=== PATIENT | male | born 1995 | race Two or more races ===

== ENCOUNTER 2019-01-23 10:30 | Emergency (ER) | payer BC ==
--- NOTE | 2019-01-23 10:33 | EDM.PDOC ---
ED HPI GENERAL MEDICAL PROBLEM - General Chief Complaint: Respiratory Problem Stated Complaint: COUGHING BLOOD Time Seen by Provider: 01/23/19 10:32 Source of Information: Reports: Patient History Limitations: Reports: No Limitations - History of Present Illness INITIAL COMMENTS - FREE TEXT/NARRATIVE: HISTORY AND PHYSICAL: History of present illness: Patient is a 23-year-old male who presents to the emergency room with complaints of a cough 1 week. He states the cough is dry and nonproductive but this morning he had noticed some blood tinged sputum which made him concerned. He does smoke occasionally. Has no previous respiratory illness or conditions.Patient denies any fever, chills, headache, change in vision, syncope or near syncope. Denies any chest pain, back pain, shortness of breath or cough. Denies any GI or symptoms. Patient has been eating and drinking appropriately. Review of systems: As per history of present illness and below otherwise all systems reviewed and negative. Past medical history: As per history of present illness and as reviewed below otherwise noncontributory. Surgical history: As per history of present illness and as reviewed below otherwise noncontributory. Social history: See social history for further information Family history: As per history of present illness and as reviewed below otherwise noncontributory. Physical exam: General: Well-developed well-nourished 23-year-old male. Alert and oriented. Nontoxic appearing and in no acute distress. HEENT: Atraumatic, normocephalic, pupils equal and reactive bilaterally, negative for conjunctival pallor or scleral icterus, mucous membranes moist, TMs normal bilaterally, throat clear, neck supple, nontender, trachea midline. No drooling or trismus noted. No meningeal signs. No hot potato voice noted. Lungs: Clear to auscultation, breath sounds equal bilaterally, chest nontender. Nonproductive cough noted Heart: S1S2, regular rate and rhythm without overt murmur Abdomen: Soft, nondistended, nontender. Negative for masses or hepatosplenomegaly. Negative for costovertebral tenderness. Pelvis: Stable nontender. Skin: Intact, warm, dry. No lesions or rashes noted. Extremities: Atraumatic, moves all extremities per self without difficulty or deficits, negative for cords or calf pain. Neurovascular unremarkable. Neuro: Awake, alert, oriented. Cranial nerves II through XII unremarkable. Cerebellum unremarkable. Motor and sensory unremarkable throughout. Exam nonfocal. Notes: Chest x-ray shows no acute findings. Medication and supportive care measures were reviewed and discussed. Voices understanding and is agreeable to plan of care. Denies any further questions or concerns at this time. Diagnostics: CXR Therapeutics: None Prescription: [place] Impression: Bronchitis Plan: 1. Take the medications as prescribed. 2. You may use [id number] lozenges for comfort. Tylenol and/or ibuprofen as needed for pain management. 3. Follow-up with your primary care provider as we discussed. Return to the ED as needed and as discussed. Definitive disposition and diagnosis as appropriate pending reevaluation and review of above. - Related Data Allergies Allergy/AdvReac Type Severity Reaction Status Date / Time No Known Allergies Allergy Verified 01/23/19 10:40 Home Meds: Home Meds Azithromycin [Zithromax] 1 dose PO DAILY 5 Days #6 tab 01/23/19 [Rx] ED ROS GENERAL - Review of Systems Review Of Systems: ROS reveals no pertinent complaints other than HPI. ED EXAM, GENERAL - Physical Exam Exam: See Below (See dictation) Course - Vital Signs Last Recorded V/S: Last Vital Signs Temp 97.4 F 01/23/19 10:41 Pulse 70 01/23/19 10:41 Resp 14 01/23/19 10:41 BP 120/62 01/23/19 10:41 Pulse Ox 96 01/23/19 10:41 - Orders/Labs/Meds Orders: Active Orders 24 hr Category Date Time Status Chest 2V [CR] Stat Exams 01/23/19 10:43 Taken Departure - Departure Time of Disposition: 11:13 Disposition: Home, Self-Care 01 Clinical Impression: Bronchitis - Discharge Information Prescriptions: Azithromycin [Zithromax] 1 dose PO DAILY 5 Days #6 tab Instructions: Acute Bronchitis, Adult, [id number] Referrals: PCP,None [Primary Care Provider] - Forms: ED Department Discharge Additional Instructions: The following information is given to patients seen in the emergency department who are being discharged to home. This information is to outline your options for follow-up care. We provide all patients seen in our emergency department with a follow-up referral. The need for follow-up, as well as the timing and circumstances, are variable depending upon the specifics of your emergency department visit. If you don't have a primary care physician on staff, we will provide you with a referral. We always advise you to contact your personal physician following an emergency department visit to inform them of the circumstance of the visit and for follow-up with them and/or the need for any referrals to a consulting specialist. The emergency department will also refer you to a specialist when appropriate. This referral assures that you have the opportunity for follow-up care with a specialist. All of these measure are taken in an effort to provide you with optimal care, which includes your follow-up. Under all circumstances we always encourage you to contact your private physician who remains a resource for coordinating your care. When calling for follow-up care, please make the office aware that this follow-up is from your recent emergency room visit. If for any reason you are refused follow-up, please contact the [facility] Emergency Department at and asked to speak to the emergency department charge nurse. [facility] [address] [place] [id number] [facility] [address] [place] [id number] 1. Take the medications as prescribed. 2. You may use [id number] lozenges for comfort. Tylenol and/or ibuprofen as needed for pain management. 3. Follow-up with your primary care provider as we discussed. Return to the ED as needed and as discussed. - My Orders Last 24 Hours: My Active Orders 01/23/19 10:43 Chest 2V [CR] Stat - Assessment/Plan Last 24 Hours: My Active Orders 01/23/19 10:43 Chest 2V [CR] Stat
--- NOTE | 2019-01-23 11:30 | CR ---
Chest: Two views of the chest were obtained. Comparison: No previous chest x-ray. Scoliosis is noted within the thoracic spine. Lungs are clear with no acute parenchymal change. Heart size and mediastinum are normal. Impression: Scoliosis. Nothing acute is seen on two-view chest x-ray. Diagnostic code #2 MTDD
== END 2019-01-23 11:21 | disposition home or self-care (01) ==
LOC: MW.ED 10:30
DX: J40 Bronchitis, not specified as acute or chronic (principal); F17.200 Nicotine dependence, unspecified, uncomplicated
CPT/HCPCS: 71046; 71046-26; 99282; 99283-25

== ENCOUNTER 2019-03-19 10:13 | Emergency (ER) | payer BC ==
--- NOTE | 2019-03-19 10:19 | EDM.PDOC ---
ED HPI GENERAL MEDICAL PROBLEM - General Stated Complaint: STOMACH PROBLEMS Time Seen by Provider: 03/19/19 10:16 Source of Information: Reports: Patient History Limitations: Reports: No Limitations - History of Present Illness INITIAL COMMENTS - FREE TEXT/NARRATIVE: HISTORY AND PHYSICAL: History of present illness: Patient is a 23-year-old male who presents to the emergency room with complaints of diarrhea 3 days. Last loose stool was yesterday. He states he has had 1 or 2 episodes over the past 3 days where he has felt nauseated but has had no vomiting. Currently not nauseated. Patient denies any fever, chills, headache, change in vision, syncope or near syncope. Denies any chest pain, back pain, shortness of breath or cough. Denies any nausea, vomiting, diarrhea, constipation or dysuria. Has not noted any blood in urine or stool. Patient has been eating and drinking appropriately. NO recent antibiotic use. Patient does have a significant other at the bedside who states she has felt well and has not had any GI or symptoms. Review of systems: As per history of present illness and below otherwise all systems reviewed and negative. Past medical history: As per history of present illness and as reviewed below otherwise noncontributory. Surgical history: As per history of present illness and as reviewed below otherwise noncontributory. Social history: See social history for further information Family history: As per history of present illness and as reviewed below otherwise noncontributory. Physical exam: General: Well-developed and well-nourished 23-year-old male. Alert and oriented. Nontoxic appearing and in no acute distress. HEENT: Atraumatic, normocephalic, pupils equal and reactive bilaterally, negative for conjunctival pallor or scleral icterus, mucous membranes moist, TMs normal bilaterally, throat clear, neck supple, nontender, trachea midline. No drooling or trismus noted. No meningeal signs. No hot potato voice noted. Lungs: Clear to auscultation, breath sounds equal bilaterally, chest nontender. Heart: S1S2, regular rate and rhythm without overt murmur Abdomen: Soft, nondistended, nontender. Negative for masses or hepatosplenomegaly. Negative for costovertebral tenderness. Pelvis: Stable nontender. Skin: Intact, warm, dry. No lesions or rashes noted. Extremities: Atraumatic, moves all extremities per self without difficulty or deficits, negative for cords or calf pain. Neurovascular unremarkable. Neuro: Awake, alert, oriented. Cranial nerves II through XII unremarkable. Cerebellum unremarkable. Motor and sensory unremarkable throughout. Exam nonfocal. Notes: Patient's physical examination is within normal limits. He does not appear dehydrated. I did offer to do basic labs along with stool studies. He declines. He states he will take home the supplies to do the outpatient stool studies and return them if he has another loose stool. I will give him one dose of Imodium while he's here as he has not taken anything [id number]. He would like a work excuse for today. We discussed signs and symptoms that would prompt him to return to the emergency room. Otherwise I encouraged him to follow up with primary care. Supportive care measures were reviewed and discussed. Voices understanding and is agreeable to plan of care. Denies any further questions or concerns at this time. Diagnostics: Declines Therapeutics: Imodium Prescription: Outpatient stool studies (R19.7) Impression: Diarrhea Plan: 1. Roane diet over the next 24-72 hours. Advance as able and tolerated. Encourage plenty of fluids to prevent dehydration. 2. Tylenol and/or ibuprofen as needed for pain management. You may use Imodium for symptomatic relief as directed. 3. Follow-up with your primary care provider as we discussed. Return to the ED as needed and as discussed. Definitive disposition and diagnosis as appropriate pending reevaluation and review of above. Duration: Day(s): - Related Data Allergies Allergy/AdvReac Type Severity Reaction Status Date / Time No Known Allergies Allergy Verified 01/23/19 10:40 Home Meds: Home Meds . [No Known Home Meds] 03/19/19 [History] Past Medical History - Past Health History Medical/Surgical History: Denies Medical/Surgical History HEENT History: Reports: None Cardiovascular History: Reports: None Respiratory History: Reports: None Gastrointestinal History: Reports: None Genitourinary History: Reports: None Musculoskeletal History: Reports: None Neurological History: Reports: None Psychiatric History: Reports: None Endocrine/Metabolic History: Reports: None Hematologic History: Reports: None Immunologic History: Reports: None Oncologic (Cancer) History: Reports: None Dermatologic History: Reports: None - Infectious Disease History Infectious Disease History: Reports: None - Past Surgical History Head Surgeries/Procedures: Reports: None Social & Family History - Family History Family Medical History: Noncontributory - Caffeine Use Caffeine Use: Reports: Coffee ED ROS GENERAL - Review of Systems Review Of Systems: Comprehensive ROS is negative, except as noted in HPI. ED EXAM, GI/ABD - Physical Exam Exam: See Below (See dictation) Course - Vital Signs Last Recorded V/S: Last Vital Signs Temp 98.5 F 03/19/19 10:35 Pulse 60 03/19/19 10:35 Resp 16 03/19/19 10:35 BP 119/69 03/19/19 10:35 Pulse Ox 98 03/19/19 10:35 - Orders/Labs/Meds Meds: Medications Discontinued Medications Generic Name Dose Route Start Last Admin Trade Name Freq PRN Reason Stop Dose Admin Loperamide HCl 2 mg 03/19/19 10:40 03/19/19 10:48 Imodium PO 03/19/19 10:41 2 mg NOW STA Administration Departure - Departure Time of Disposition: 10:47 Disposition: Home, Self-Care 01 Clinical Impression: Diarrhea Qualifiers: Diarrhea type: unspecified type Qualified Code(s): R19.7 - Diarrhea, unspecified - Discharge Information Instructions: Diarrhea, Adult, [id number] Referrals: PCP,None [Primary Care Provider] - Additional Instructions: The following information is given to patients seen in the emergency department who are being discharged to home. This information is to outline your options for follow-up care. We provide all patients seen in our emergency department with a follow-up referral. The need for follow-up, as well as the timing and circumstances, are variable depending upon the specifics of your emergency department visit. If you don't have a primary care physician on staff, we will provide you with a referral. We always advise you to contact your personal physician following an emergency department visit to inform them of the circumstance of the visit and for follow-up with them and/or the need for any referrals to a consulting specialist. The emergency department will also refer you to a specialist when appropriate. This referral assures that you have the opportunity for follow-up care with a specialist. All of these measure are taken in an effort to provide you with optimal care, which includes your follow-up. Under all circumstances we always encourage you to contact your private physician who remains a resource for coordinating your care. When calling for follow-up care, please make the office aware that this follow-up is from your recent emergency room visit. If for any reason you are refused follow-up, please contact the [facility] Emergency Department at and asked to speak to the emergency department charge nurse. [facility] [address] [place] [address] [facility] [address] [place] [id number] 1. Roane diet over the next 24-72 hours. Advance as able and tolerated. Encourage plenty of fluids to prevent dehydration. 2. Tylenol and/or ibuprofen as needed for pain management. You may use Imodium for symptomatic relief as directed. 3. Follow-up with your primary care provider as we discussed. Return to the ED as needed and as discussed.
[2019-03-19] MEDS ORDERED: Loperamide 2 MG Cap PO STA (10:40)
== END 2019-03-19 11:06 | disposition home or self-care (01) ==
LOC: MW.ED 10:13
DX: R19.7 Diarrhea, unspecified (principal)
CPT/HCPCS: 99283; A9270

== ENCOUNTER 2019-04-21 00:30 | Emergency (ER) | payer BC ==
--- NOTE | 2019-04-21 02:31 | EDM.PDOC ---
ED HPI GENERAL MEDICAL PROBLEM - General Chief Complaint: Fever Stated Complaint: FLU SYMPTOMS Time Seen by Provider: 04/21/19 01:07 Source of Information: Reports: Patient History Limitations: Reports: No Limitations - History of Present Illness Onset: Gradual Duration: Day(s):, Waxing/Waning Location: Reports: Head Quality: Reports: Ache, Burning Severity: Mild Improves with: Reports: None Worsens with: Reports: None Context: Reports: Sick Contact Associated Symptoms: Reports: Cough, Fever/Chills, Nausea/Vomiting Middle Back Pain Score (Numeric/FACES): 7 - Related Data Allergies Allergy/AdvReac Type Severity Reaction Status Date / Time No Known Allergies Allergy Verified 04/21/19 00:49 Home Meds: Home Meds . [No Known Home Meds] 03/19/19 [History] Past Medical History - Past Health History Medical/Surgical History: Denies Medical/Surgical History HEENT History: Reports: None Cardiovascular History: Reports: None Respiratory History: Reports: None Gastrointestinal History: Reports: None Genitourinary History: Reports: None Musculoskeletal History: Reports: None Neurological History: Reports: None Psychiatric History: Reports: None Endocrine/Metabolic History: Reports: None Hematologic History: Reports: None Immunologic History: Reports: None Oncologic (Cancer) History: Reports: None Dermatologic History: Reports: None - Infectious Disease History Infectious Disease History: Reports: None - Past Surgical History Head Surgeries/Procedures: Reports: None Social & Family History - Family History Family Medical History: Noncontributory - Tobacco Use Smoking Status *Q: Never Smoker Second Hand Smoke Exposure: No - Caffeine Use Caffeine Use: Reports: Soda - Recreational Drug Use Recreational Drug Use: Yes Drug Use in Last 12 Months: Yes Recreational Drug Type: Reports: Marijuana/Hashish Recreational Drug Use Frequency: Socially ED ROS ENT - Review of Systems Review Of Systems: See Below Constitutional: Reports: Fever, Chills, Malaise, Weakness HEENT: Reports: No Symptoms Respiratory: Reports: Cough Cardiovascular: Reports: No Symptoms Endocrine: Reports: No Symptoms GI/Abdominal: Reports: Nausea, Vomiting : Reports: No Symptoms Musculoskeletal: Reports: No Symptoms Skin: Reports: No Symptoms Neurological: Reports: No Symptoms Psychiatric: Reports: No Symptoms Hematologic/Lymphatic: Reports: No Symptoms Immunologic: Reports: No Symptoms ED EXAM, ENT - Physical Exam Exam: See Below Exam Limited By: No Limitations General Appearance: Alert, WD/WN, No Apparent Distress Eye Exam: Bilateral Eye: Normal Fundi, Normal Inspection Ears: Normal External Exam, Normal Canal, Hearing Grossly Normal, Normal TMs Nose: Normal Inspection, Normal Mucousa, No Blood Mouth/Throat: Normal Inspection, Normal Gums, Normal Lips, Normal Oropharynx, Normal Teeth Head: Atraumatic, Normocephalic Neck: Normal Inspection, Supple, Non-Tender, Full Range of Motion Respiratory/Chest: No Respiratory Distress, Lungs Clear, Normal Breath Sounds, No Accessory Muscle Use, Chest Non-Tender Cardiovascular: Normal Peripheral Pulses, Regular Rate, Rhythm, No Edema, No Gallop, No JVD, No Murmur (Male) Exam: Deferred Rectal (Males) Exam: Deferred Back: Normal Inspection Neurological: Alert, Oriented, CN II-XII Intact, Normal Cognition, Normal Gait Psychiatric: Normal Affect, Normal Mood Skin: Warm, Dry, Intact, Normal Color Course - Vital Signs Last Recorded V/S: Last Vital Signs Temp 97.3 F 04/21/19 00:46 Pulse 89 04/21/19 00:46 Resp 16 04/21/19 00:46 BP 112/63 04/21/19 00:46 Pulse Ox 89 L 04/21/19 00:46 - Orders/Labs/Meds Orders: Active Orders 24 hr Category Date Time Status INFLUENZA A+B AG SCREEN [RM] Stat Lab 04/21/19 00:45 Received Departure - Departure Time of Disposition: 02:32 Disposition: Home, Self-Care 01 Condition: Good Clinical Impression: Viral syndrome - Discharge Information *PRESCRIPTION DRUG MONITORING PROGRAM REVIEWED*: Not Applicable Instructions: Viral Illness, Adult, Viral Respiratory Infection, [id number] Referrals: PCP,None [Primary Care Provider] - Sepsis Event Note - Evaluation Sepsis Screening Result: No Definite Risk - Focused Exam Vital Signs: Vital Signs Temp Pulse Resp BP Pulse Ox 04/21/19 00:46 97.3 F 89 16 112/63 89 L Date Exam was Performed: 04/21/19 Time Exam was Performed: 01:14 - My Orders Last 24 Hours: My Active Orders 04/21/19 00:45 INFLUENZA A+B AG SCREEN [RM] Stat - Assessment/Plan Last 24 Hours: My Active Orders 04/21/19 00:45 INFLUENZA A+B AG SCREEN [RM] Stat
== END 2019-04-21 02:45 | disposition home or self-care (01) ==
LOC: MW.ED 00:30
DX: B34.9 Viral infection, unspecified (principal)
CPT/HCPCS: 87804; 99284

== ENCOUNTER 2020-09-16 09:08 | Emergency (ER) | payer BC, OTHER ==
--- NOTE | 2020-09-16 09:26 | EDM.PDOC ---
ED HPI GENERAL MEDICAL PROBLEM - General Chief Complaint: Upper Extremity Injury/Pain Stated Complaint: LFT SHOULDER DISLOCATED Time Seen by Provider: 09/16/20 09:12 - History of Present Illness INITIAL COMMENTS - FREE TEXT/NARRATIVE: History of present illness: [] The patient was lifting something heavy at work and felt a pop in his left shoulder. Now he has trouble with extension and abduction of the shoulder. It is painful when he does that. It is painful at rest but worse when he tries to use it. The patient has no prior injury to this shoulder. The patient has no neurologic deficit in the shoulder. There is no associated symptoms or radiated pain. The pain is moderately severe when he tries to use the shoulder. Review of systems: As per history of present illness and below otherwise all systems reviewed and negative. Past medical history: As per history of present illness and as reviewed below otherwise noncontributory. Surgical history: As per history of present illness and as reviewed below otherwise noncontributory. Social history: No reported history of drug or alcohol abuse. Family history: As per history of present illness and as reviewed below otherwise noncontributory. Physical exam: Constitutional - well developed, well-nourished and in no acute distress HEENT - normocephalic, no evidence of trauma - external nose and mouth normal - no mass in neck and no JVD - mucosae moist EYES - full EOM, PERRL, no icterus - no evidence of inflammation, injection, or drainage Respiratory - no respiratory distress, equal bilateral expansion Musculoskeletal no obvious deformity of the left shoulder. Pain with range of motion. Limited abduction and extension secondary to pain. No gross deformity of long bones or joints - no tenderness, swelling or edema Neurologic -median ulnar and radial sensory and motor function in the left upper extremity is intact. Alert and oriented times four - CN II-XII grossly intact - motor sensory and coordination symmetrically normal Psychiatric - appropriate mood and affect with normal thought content Hematologic - No petechiae or purpura - mucosa appropriate color and sclera not pale - normal nail bed color and refill Integument - no rash or evidence of trauma - normal turgor Diagnostics: [] Therapeutics: [] Impression: [] Plan: [] Definitive disposition and diagnosis as appropriate pending reevaluation and review of above. Left shoulder Pain Score (Numeric/FACES): 6 - Related Data Allergies Allergy/AdvReac Type Severity Reaction Status Date / Time No Known Allergies Allergy Verified 09/16/20 09:24 Home Meds: Home Meds . [No Known Home Meds] 09/16/20 [History] Past Medical History - Past Health History Medical/Surgical History: Denies Medical/Surgical History HEENT History: Reports: None Cardiovascular History: Reports: None Respiratory History: Reports: None Gastrointestinal History: Reports: None Genitourinary History: Reports: None Musculoskeletal History: Reports: None Neurological History: Reports: None Psychiatric History: Reports: None Endocrine/Metabolic History: Reports: None Hematologic History: Reports: None Immunologic History: Reports: None Oncologic (Cancer) History: Reports: None Dermatologic History: Reports: None - Infectious Disease History Infectious Disease History: Reports: None - Past Surgical History Head Surgeries/Procedures: Reports: None Social & Family History - Family History Family Medical History: No Pertinent Family History - Caffeine Use Caffeine Use: Reports: Soda Review of Systems - Review of Systems Review Of Systems: Comprehensive ROS is negative, except as noted in HPI. ED EXAM, GENERAL - Physical Exam Exam: See Below Free Text/Narrative:: My physical exam is in the HPI Course - Vital Signs Text/Narrative:: Patient was offered p.o. or intramuscular nonsteroidal anti-inflammatory medicine and he refused because he said he can tolerate the pain. 9:51 AM the patient continues to have limited range of motion left shoulder. X- ray is normal to my interpretation. Impression is rotator cuff tear. Plan immobilize 2 days and no use of the left shoulder to lift. Orthopedic follow-up to see if he needs an MRI and/or further care including possible surgery. Last Recorded V/S: Last Vital Signs Temp 36.4 C 09/16/20 09:25 Pulse 83 09/16/20 09:25 Resp 16 09/16/20 09:25 BP 129/80 09/16/20 09:25 Pulse Ox 98 09/16/20 09:25 - Orders/Labs/Meds Orders: Active Orders 24 hr Category Date Time Status Shoulder Comp Lt [CR] Stat Exams 09/16/20 09:23 Taken DME for Discharge [COMM] Stat Oth 09/16/20 09:50 Ordered Departure - Departure Time of Disposition: 10:10 Disposition: Home, Self-Care 01 Condition: Good Clinical Impression: Unspecified sprain of left shoulder joint, initial encounter - Discharge Information Instructions: Shoulder Pain, [id number] Referrals: PCP,Declined [Primary Care Provider] - Forms: ED Department Discharge Additional Instructions: OverClinically it appears she may have torn part of your rotator cuff. After 2 days of immobilization ice counter anti-inflammatory medications and orthopedist or provider at the orthopedic clinic should decide if he can be released to full duty or if you need an MRI and possible consideration of further care including surgery. [facility] [place] [facility] [address], [address] [place] [address] The following information is given to patients seen in the emergency department who are being discharged to home. This information is to outline your options for follow-up care. We provide all patients seen in our emergency department with a follow-up referral. The need for follow-up, as well as the timing and circumstances, are variable depending upon the specifics of your emergency department visit. If you don't have a primary care physician on staff, we will provide you with a referral. We always advise you to contact your personal physician following an emergency department visit to inform them of the circumstance of the visit and for follow-up with them and/or the need for any referrals to a consulting specialist. The emergency department will also refer you to a specialist when appropriate. This referral assures that you have the opportunity for follow-up care with a specialist. All of these measure are taken in an effort to provide you with optimal care, which includes your follow-up. Under all circumstances we always encourage you to contact your private physician who remains a resource for coordinating your care. When calling for follow-up care, please make the office aware that this follow-up is from your recent emergency room visit. If for any reason you are refused follow-up, please contact the [facility] Emergency Department at and asked to speak to the emergency department charge nurse. Sepsis Event Note (ED) - Focused Exam Vital Signs: Vital Signs Temp Pulse Resp BP Pulse Ox 09/16/20 09:25 36.4 C 83 16 129/80 98 - My Orders Last 24 Hours: My Active Orders 09/16/20 09:23 Shoulder Comp Lt [CR] Stat 09/16/20 09:50 DME for Discharge [COMM] Stat - Assessment/Plan Last 24 Hours: My Active Orders 09/16/20 09:23 Shoulder Comp Lt [CR] Stat 09/16/20 09:50 DME for Discharge [COMM] Stat
--- NOTE | 2020-09-16 10:30 | CR ---
Indication: Lifting injury with pop Comparison: None available. Technique: AP internal, external rotation, and scapular-Y views left shoulder were obtained Findings: There is no displaced fracture or dislocation. The joint spaces are grossly preserved. The soft tissues are unremarkable. Impression: No acute osseous abnormality. Recommend follow-up with MRI to assess for internal derangement if there is persistent pain and clinical symptoms. Dictated by Nico Keen MD @ 09/16/2020 10:29:[address] Nico Keen @ Sep 16 2020 10:29AM
== END 2020-09-16 10:22 | disposition home or self-care (01) ==
LOC: MW.ED 09:08
DX: S43.402A Unspecified sprain of left shoulder joint, initial encounter (principal); X50.1XXA Overexertion from prolonged static or awkward postures, initial encounter; Y99.0 Civilian activity done for income or pay
CPT/HCPCS: 73030-26-LT; 73030-LT; 99283; 99283-25

== ENCOUNTER 2020-10-07 07:48 | Emergency (ER) | payer SELFPAY ==
--- NOTE | 2020-10-07 07:51 | EDM.PDOC ---
ED HPI GENERAL MEDICAL PROBLEM - General Stated Complaint: BACK PAIN Time Seen by Provider: 10/07/20 09:30 Source of Information: Reports: Patient History Limitations: Reports: No Limitations - History of Present Illness INITIAL COMMENTS - FREE TEXT/NARRATIVE: 24-year-old male no past medical history presents for low back pain for the last couple of months worsening over the last couple of days. Patient also notes history of left rotator cuff injury. Patient denies falling or injuring his back. No history of heavy lifting that he can recall. He went to a chiropractor yesterday which helped for about an hour but then the pain recurred. He is never had advanced imaging of the back. Pain is an bilateral lower back, not midline. No muscle weakness, sensory changes, saddle anesthesia, urinary or bowel incontinence or retention. left back Pain Score (Numeric/FACES): 8 - Related Data Allergies Allergy/AdvReac Type Severity Reaction Status Date / Time No Known Allergies Allergy Verified 10/07/20 09:26 Home Meds: Home Meds Cyclobenzaprine [Flexeril] 10 mg PO TID PRN #20 tab 10/07/20 [Rx] Ibuprofen [Motrin] 600 mg PO Q6H PRN #20 tab 10/07/20 [Rx] Past Medical History - Past Health History Medical/Surgical History: Denies Medical/Surgical History HEENT History: Reports: None Cardiovascular History: Reports: None Respiratory History: Reports: None Gastrointestinal History: Reports: None Genitourinary History: Reports: None Musculoskeletal History: Reports: None Neurological History: Reports: None Psychiatric History: Reports: None Endocrine/Metabolic History: Reports: None Hematologic History: Reports: None Immunologic History: Reports: None Oncologic (Cancer) History: Reports: None Dermatologic History: Reports: None - Infectious Disease History Infectious Disease History: Reports: None - Past Surgical History Head Surgeries/Procedures: Reports: None Social & Family History - Family History Family Medical History: No Pertinent Family History - Caffeine Use Caffeine Use: Reports: None ED ROS GENERAL - Review of Systems Review Of Systems: Comprehensive ROS is negative, except as noted in HPI. ED EXAM, GENERAL - Physical Exam Exam: See Below Exam Limited By: No Limitations General Appearance: Alert, WD/WN, No Apparent Distress Throat/Mouth: Normal Voice, No Airway Compromise Head: Atraumatic, Normocephalic Neck: Normal Inspection, Supple, Non-Tender Respiratory/Chest: No Respiratory Distress, Lungs Clear, Normal Breath Sounds, No Accessory Muscle Use Cardiovascular: Normal Peripheral Pulses, Regular Rate, Rhythm GI/Abdominal: Soft, Non-Tender Back Exam: Normal Inspection. No: Muscle Spasm, Paraspinal Tenderness, Vertebral Tenderness Extremities: Normal Inspection Neurological: Alert, Normal Cognition, Normal Gait Psychiatric: Normal Affect, Normal Mood Skin Exam: Warm, Dry, Intact, Normal Color Course - Vital Signs Last Recorded V/S: Last Vital Signs Temp 97.4 F 10/07/20 09:27 Pulse 65 10/07/20 09:27 Resp 18 10/07/20 09:27 BP 112/67 10/07/20 09:27 Pulse Ox 96 10/07/20 09:27 - Orders/Labs/Meds Meds: Medications Discontinued Medications Generic Name Dose Route Start Last Admin Trade Name Freq PRN Reason Stop Dose Admin Cyclobenzaprine HCl 10 mg 10/07/20 09:39 10/07/20 10:10 Cyclobenzaprine 10 Mg Tab PO 10/07/20 09:40 10 mg ONETIME ONE Administration Dexamethasone 10 mg 10/07/20 09:39 10/07/20 10:09 Dexamethasone 10 Mg/Ml Sdv IM 10/07/20 09:40 10 mg STAT STA Administration Ketorolac Tromethamine 30 mg 10/07/20 09:40 10/07/20 10:09 Ketorolac 30 Mg/Ml Sdv IM 10/07/20 09:41 30 mg ONETIME ONE Administration Oxycodone/Acetaminophen 1 tab 10/07/20 09:39 10/07/20 10:10 Acetaminophen/Oxycodone 325-5 Mg Tab PO 10/07/20 09:40 1 tab ONETIME ONE Administration - Re-Assessments/Exams Free Text/Narrative Re-Assessment/Exam: 10/07/20 10:19 We will treat symptomatically with Decadron, Percocet, Toradol, Flexeril. Will discharge with prescription for nonsteroidal anti-inflammatory and Flexeril. Recommend follow-up with primary care physician for further work-up. Departure - Departure Time of Disposition: 10:19 Disposition: Home, Self-Care 01 Condition: Good Clinical Impression: Back pain Qualifiers: Back pain location: low back pain Chronicity: acute Back pain laterality: bilateral Sciatica presence: without sciatica Qualified Code(s): M54.5 - Low back pain - Discharge Information Prescriptions: Cyclobenzaprine [Flexeril] 10 mg PO TID PRN #20 tab PRN Reason: Muscle Spasm - Painful Ibuprofen [Motrin] 600 mg PO Q6H PRN #20 tab PRN Reason: Pain Instructions: Acute Back Pain, Adult Referrals: PCP,None [Primary Care Provider] - Additional Instructions: You were treated in the emergency department with a long-acting steroid, and injectable nonsteroidal anti-inflammatory, muscle relaxant, Percocet. You were sent a prescription for Motrin and a muscle relaxant to your pharmacy. I would recommend follow-up with your primary care physician to consider advanced imaging of the back to get a more complete idea of exactly what is going on. The following information is given to patients seen in the emergency department who are being discharged to home. This information is to outline your options for follow-up care. We provide all patients seen in our emergency department with a follow-up referral. The need for follow-up, as well as the timing and circumstances, are variable depending upon the specifics of your emergency department visit. If you don't have a primary care physician on staff, we will provide you with a referral. We always advise you to contact your personal physician following an emergency department visit to inform them of the circumstance of the visit and for follow-up with them and/or the need for any referrals to a consulting specialist. The emergency department will also refer you to a specialist when appropriate. This referral assures that you have the opportunity for follow-up care with a specialist. All of these measure are taken in an effort to provide you with optimal care, which includes your follow-up. Under all circumstances we always encourage you to contact your private physician who remains a resource for coordinating your care. When calling for follow-up care, please make the office aware that this follow-up is from your recent emergency room visit. If for any reason you are refused follow-up, please contact the [facility] Emergency Department at and asked to speak to the emergency department charge nurse. Please follow up with your primary care physician. If you do not have a primary care physician, see below: [facility] [address] [place] [id number] [facility] [address] [place] [address] [facility] [address], [place] [address] Sepsis Event Note (ED) - Focused Exam Vital Signs: Vital Signs Temp Pulse Resp BP Pulse Ox 10/07/20 09:27 97.4 F 65 18 112/67 96
[2020-10-07] MEDS ORDERED: Dexamethasone 10 MG/ML SDV IM STA (09:39)
[2020-10-07] MEDS ORDERED: Acetaminophen/oxyCODONE 325-5 MG Tab PO ONE (09:39)
[2020-10-07] MEDS ORDERED: Cyclobenzaprine 10 MG Tab PO ONE (09:39)
[2020-10-07] MEDS ORDERED: Ketorolac 30 MG/ML SDV IM ONE (09:40)
== END 2020-10-07 10:40 | disposition home or self-care (01) ==
LOC: MW.ED 07:48
DX: M54.5 Low back pain (principal)
CPT/HCPCS: 96372; 99283; A9270; J1100; J1885